=== PATIENT | female | born 1995 | race Two or more races ===

== ENCOUNTER 2019-11-14 17:22 | Emergency (ER) | payer MEDICAID ==
[~2019-11-14] VITALS: Ht 170.2 cm; Wt 54.4 kg
[2019-11-14 17:39] VITALS: BP 108/76
[2019-11-14] MEDS ORDERED: BACLOFEN 10 MG TAB PO ONE (18:45)
[2019-11-14] MEDS ORDERED: ACETAMINOPHEN/CODEINE#3 (300/30mg) TAB PO ONE (18:45)
[2019-11-14] MEDS ORDERED: TRIAMCINOLONE 40MG/ML 1ML VIAL IM ONE (18:45)
== END 2019-11-14 19:33 | disposition home or self-care (01) ==
LOC: ER 17:22
DX: N39.0 Urinary tract infection, site not specified (principal); M06.9 Rheumatoid arthritis, unspecified; M62.838 Other muscle spasm; K59.00 Constipation, unspecified; Z88.0 Allergy status to penicillin; Z88.8 Allergy status to other drugs, medicaments and biological substances
CPT/HCPCS: 74018; 81002; 81025; 96372; 99283; J3301

== ENCOUNTER 2024-01-16 18:31 | Inpatient (IN) | payer MEDICAID ==
[~2024-01-16] VITALS: Ht 170.2 cm; Wt 61.3 kg
[2024-01-16] MEDS: ENOXAPARIN SOD 40 MG/0.4 ML SYRINGE SC SCH (10:00)
[2024-01-16] MEDS ORDERED: VANCOMYCIN PER PHARMACY 0 MG IV SCH (20:15)
[2024-01-16] MEDS: SODIUM CHLORIDE 0.9% 1,000 ML IV ONE (20:15)
[2024-01-16 20:45] LABS: Basophils # (auto) 0.1 10 ^3/uL (0-0.2); Basophils % (auto) 0.8 % (0.0-2.0); Eosinophils # (auto) 0.3 10 ^3/uL (0-0.8); Eosinophils % (auto) 3.7 % (0.0-7.0); Hematocrit 39.6 % (36.0-46.0); Hemoglobin 13.1 g/dL (12.2-16.2); Lymphocytes # (auto) 2.7 10 ^3/uL (0.4-5.4); Lymphocytes % (auto) 33.7 % (10.0-50.0); Mean Corpuscular Hemoglobin 29.2 pg (28.0-32.0); Mean Corpuscular Hgb Conc. 33.1 g/dL (32.0-36.0); Mean Corpuscular Volume 88.2 fL (80.0-100.0); Monocytes # (auto) 0.9 10 ^3/uL (0-1.3); Monocytes % (auto) 10.7 % (0.0-12.0); Neutrophils # (auto) 4.1 10 ^3/uL (1.6-8.6); Neutrophils % (auto) 51.1 % (37.0-80.0); Nucleated Red Blood Cells % 0.1 %; Red Blood Cells 4.49 10^6/uL (4.0-5.20); Red Cell Distribution Width 12.8 % (11.8-14.3)
[2024-01-16 21:03] LABS: Alanine Aminotransferase 11 U/L (7-40); Albumin 4.3 g/dL (3.2-4.8); Alkaline Phosphatase 60 U/L (46-116); Anion Gap 7 (5-15); Aspartate Aminotransferase 15 U/L (13-40); BUN/Creatinine Ratio 11.6 (10.0-20.0); Blood Urea Nitrogen 11 mg/dL (9-23); Calcium 8.9 mg/dL (8.5-10.1); Carbon Dioxide 29 mmol/L (20-30); Chloride 104 mmol/L (98-107); Glucose 82 mg/dL (74-106); Potassium 3.8 mmol/L (3.5-5.1); Sodium 140 mmol/L (136-145)
[2024-01-16 21:04] LABS: Bilirubin, Total 0.6 mg/dL (0.2-1.0); Total Protein 7.2 g/dL (5.7-8.2)
[2024-01-16 21:12] LABS: CRP High Sensitivity 3.67 mg/dL (<1.0)
[2024-01-16] MEDS ORDERED: NITROGLYCERIN 0.4 MG SL TAB SL PRN (21:30)
[2024-01-16] MEDS ORDERED: ONDANSETRON HCL 4 MG/2 ML VIAL IV PRN (21:30)
[2024-01-16] MEDS ORDERED: TEMAZEPAM 15 MG CAP PO PRN (21:30)
[2024-01-16] MEDS ORDERED: DOCUSATE SOD 100 MG CAP PO PRN (21:30)
[2024-01-16] MEDS ORDERED: MORPHINE SULFATE INJ 2 MG/ml SYRG IV PRN ×2 (21:30)
[2024-01-16 21:43] LABS: Erythrocyte Sedimentation Rate 32 mm/hr (0-20)
[2024-01-17 02:59] LABS: Urine Bacteria NONE SEEN /hpf (None Seen); Urine Blood Negative /uL (Negative); Urine Clarity Clear (Clear); Urine Color Yellow (Yellow); Urine Mucus FEW (None Seen); Urine Protein, UAD TRACE (Negative); Urine Urobilinogen Normal (Negative); Urine WBC 5 /hpf (0 - 5); Urine pH 5.5 (5.0-8.0)
[2024-01-17] MEDS: SODIUM CHLORIDE 0.9% 1,000 ML IV SCH (05:50)
[2024-01-17 06:02] LABS: Basophils # (auto) 0.1 10 ^3/uL (0-0.2); Eosinophils # (auto) 0.3 10 ^3/uL (0-0.8); Eosinophils % (auto) 4.9 % (0.0-7.0); Hematocrit 39.4 % (36.0-46.0); Hemoglobin 13.4 g/dL (12.2-16.2); Lymphocytes # (auto) 2.3 10 ^3/uL (0.4-5.4); Lymphocytes % (auto) 41.9 % (10.0-50.0); Mean Corpuscular Hemoglobin 29.9 pg (28.0-32.0); Mean Corpuscular Volume 87.9 fL (80.0-100.0); Monocytes # (auto) 0.6 10 ^3/uL (0-1.3); Monocytes % (auto) 10.9 % (0.0-12.0); Neutrophils # (auto) 2.3 10 ^3/uL (1.6-8.6); Neutrophils % (auto) 41.3 % (37.0-80.0); Red Blood Cells 4.48 10^6/uL (4.0-5.20); Red Cell Distribution Width 12.9 % (11.8-14.3); White Blood Cell 5.6 10^3/uL (4.4-10.8)
[2024-01-17 06:21] LABS: Albumin 4.2 g/dL (3.2-4.8); Alkaline Phosphatase 55 U/L (46-116); Anion Gap 6 (5-15); Aspartate Aminotransferase 15 U/L (13-40); Blood Urea Nitrogen 9 mg/dL (9-23); Calcium 9.1 mg/dL (8.5-10.1); Carbon Dioxide 27 mmol/L (20-30); Chloride 105 mmol/L (98-107); Glucose 102 mg/dL (74-106); Potassium 4.3 mmol/L (3.5-5.1); Sodium 138 mmol/L (136-145)
[2024-01-17 06:22] LABS: Bilirubin, Total 0.6 mg/dL (0.2-1.0)
[2024-01-17 06:23] LABS: Alanine Aminotransferase < 9 U/L (7-40)
[2024-01-17 08:00] VITALS: PULSE 82; RESP 12; O2SAT 95
[2024-01-17] MEDS: VANCOMYCIN 1GM/200ML 200 ML IV ONE (08:05)
[2024-01-17] MEDS: DOXYCYCLINE 100MG/250ML 250 ML IV SCH ×2 (08:08→20:00)
[2024-01-17 16:00] VITALS: BP 99/58; PULSE 109; RESP 16; TEMP 97.6; O2SAT 100
[2024-01-17] MEDS: VANCOMYCIN 1GM/200ML 200 ML IV SCH (17:38)
[2024-01-17] MEDS: ACETAMINOPHEN 325 MG TAB PO PRN (18:11)
[2024-01-17 20:00] VITALS: PULSE 97; RESP 18
[2024-01-17 22:00] VITALS: BP 101/62; PULSE 97; RESP 18; TEMP 97.5; O2SAT 100
[2024-01-18 02:00] VITALS: BP 101/62; PULSE 97; RESP 18; TEMP 97.5
[2024-01-18 05:00] VITALS: BP 106/73; PULSE 83; RESP 18; TEMP 98.4; O2SAT 99
[2024-01-18] MEDS: HYDROcodone-ACET 5/325MG TAB PO PRN (05:02)
[2024-01-18 08:00] VITALS: BP_SYST 102; BP_SYST 96; BP_DIAS 54; BP_DIAS 64; PULSE 104; PULSE 86; PULSE 98; RESP 14; RESP 16; RESP 18; TEMP 97.5; TEMP 98; O2SAT 95; O2SAT 96
[2024-01-18 12:00] VITALS: BP 112/69; PULSE 82; RESP 16; TEMP 98; O2SAT 99
[2024-01-18] MEDS ORDERED: DOXY-447 PO (14:33)
== END 2024-01-18 19:05 | disposition home or self-care (01) | DRG 383 ==
LOC: ER 18:31 → OVERFLOW 21:34 → CENTRAL 01-17 14:22
PROVIDERS: ADMIT Nurse Practitioner; ATTEND Nurse Practitioner
DX: L03.115 Cellulitis of right lower limb (principal); M32.9 Systemic lupus erythematosus, unspecified; M79.7 Fibromyalgia; Z88.0 Allergy status to penicillin; Z88.8 Allergy status to other drugs, medicaments and biological substances; Z86.718 Personal history of other venous thrombosis and embolism
CPT/HCPCS: 36415; 73630; 80053; 80202; 81001; 81025; 83605; 83880; 84484; 84550; 85025; 85652; 86141; 87040; 93971; 96360; G0378; J3490

== ENCOUNTER 2024-05-20 07:54 | Emergency (ER) | payer MEDICAID, OTHER ==
[~2024-05-20] VITALS: Ht 170.2 cm; Wt 58.3 kg
[~2024-05-20 07:54] MED LIST: DOXY-447 PO
[2024-05-20 09:09] LABS: Alanine Aminotransferase 13 U/L (7-40); Albumin 4.2 g/dL (3.2-4.8); Alkaline Phosphatase 60 U/L (46-116); Anion Gap 4 (5-15); Aspartate Aminotransferase 13 U/L (13-40); BUN/Creatinine Ratio 11.2 (10.0-20.0); Basophils # (auto) 0 10 ^3/uL (0-0.2); Basophils % (auto) 0.5 % (0.0-2.0); Bilirubin, Total 0.5 mg/dL (0.2-1.0); Blood Urea Nitrogen 10 mg/dL (9-23); Carbon Dioxide 25 mmol/L (20-30); Chloride 107 mmol/L (98-107); Eosinophils # (auto) 0.2 10 ^3/uL (0-0.8); Eosinophils % (auto) 2.2 % (0.0-7.0); Glucose 97 mg/dL (74-106); Hematocrit 38.8 % (36.0-46.0); Hemoglobin 13.4 g/dL (12.2-16.2); Lymphocytes # (auto) 1.8 10 ^3/uL (0.4-5.4); Lymphocytes % (auto) 23.8 % (10.0-50.0); Mean Corpuscular Hgb Conc. 34.4 g/dL (32.0-36.0); Monocytes # (auto) 0.6 10 ^3/uL (0-1.3); Monocytes % (auto) 7.7 % (0.0-12.0); Neutrophils # (auto) 5.1 10 ^3/uL (1.6-8.6); Neutrophils % (auto) 65.8 % (37.0-80.0); Potassium 4.2 mmol/L (3.5-5.1); Red Blood Cells 4.46 10^6/uL (4.0-5.20); Red Cell Distribution Width 13.1 % (11.8-14.3); Sodium 136 mmol/L (136-145); Total Protein 7.2 g/dL (5.7-8.2); White Blood Cell 7.8 10^3/uL (4.4-10.8)
[2024-05-20 10:05] VITALS: BP 113/76; PULSE 90; RESP 18; TEMP 98.6; O2SAT 98
[2024-05-20] MEDS ORDERED: NAPR125S6 PO (10:07)
[2024-05-20] MEDS ORDERED: CIPR-173 PO (10:07)
== END 2024-05-20 10:19 | disposition home or self-care (01) ==
LOC: ER 07:54
DX: L03.116 Cellulitis of left lower limb (principal); Z88.0 Allergy status to penicillin; Z91.09 Other allergy status, other than to drugs and biological substances
CPT/HCPCS: 36415; 80053; 85025